=== PATIENT | male | born 1970 | race Caucasian/White ===

== ENCOUNTER 2024-03-25 13:53 | Emergency (ER) | payer MEDICAID ==
[~2024-03-25] VITALS: Ht 172.7 cm; Wt 60.9 kg
[2024-03-25 15:24] VITALS: BP 138/78; PULSE 74; RESP 16; TEMP 98.1; O2SAT 99
[2024-03-25] MEDS: acetaminophen 325mg tablet PO STA (15:24)
== END 2024-03-25 15:27 | disposition home or self-care (01) ==
LOC: ER 13:54
DX: M54.50 Low back pain, unspecified (principal); Z88.1 Allergy status to other antibiotic agents
CPT/HCPCS: 99281; 99282